=== PATIENT | male | born 1960 | race Two or more races ===

== ENCOUNTER 2024-10-20 12:00 | Outpatient (AMB) | payer OTHER, SELFPAY ==
--- NOTE | 2024-10-20 12:12 | A.OFFPC_ITS ---
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 Required: No Accompanied by: Self / Same As Patient Allergies No Known Allergies Allergy (Verified 10/20/24 12:56) Medication List - Last Reconciled 10/20/24 by [facility] No Known Home Meds Tobacco use date assessed: 10/20/24 Fall risk assessment: No Falls in past year Last assessed Fall Risk: 10/20/24 Dental Screening Dental Screen Date: 10/20/24 Did you have a dental visit in the last 12 months?: Yes Did you have a dental problem in the last 6 months where you did not have access to dental care?: No Was dental information given to patient?: Patient has dentist HPI ESTABLISH CARE HPI Details Chief Complaint The patient is visiting for general wellness and management of chronic conditions, with an emphasis on historical prostatitis, erectile dysfunction, and previous high blood pressure. History of Present Illness The patient is a 64-year-old male presenting for wellness and managing chronic conditions. He reports a previous history of high blood pressure; however, his blood pressure is currently stable. Approximately reported through a past episode, he experienced prostatitis with an elevated PSA level that has since returned to normal. He is currently not experiencing any urinary symptoms and declines a digital rectal examination (ELIO) for further prostate evaluation. There is recorded historical observation of elevated PSA testing, with prior attention from a urologist. In addition, the patient reports some erectile dysfunction. No other associated symptoms or aggravating factors related to this issue were noted during the visit. Social History - Smoking: The patient smokes cigars pierre roximately once a week and does not smoke cigarettes or marijuana. - Alcohol Use: He drinks alcohol occasio lidia but limits the intake. - Previous Urological Care: Followed by a urologist in [place] for past prostate concerns. Health Maintenance - Lab work, including PSA, was ordered f or current evaluation. - Referral for a colonoscopy due to unce rtainty about previous screenings. Review of Systems - Genitourinary: Denies any current urin manny symptoms. - Cardiovascular: Denies peripheral candida a. Physical Exam General: Cooperative, healthy appearing, comfortable, no acute distress and well developed Orientation: Patient oriented x3 Limitations: No limitations Head: Normal to inspection Ears: Hearing grossly normal bilaterally Nose: Normal external nose present Face and sinus: Normal facial exam Eyes: Appearance normal, both eyes and all related structures Neck: Normal visual inspection and Yes full ROM Respiratory: Normal respiratory effort and able to speak in complete sentences. Clear to auscultation bilaterally Cardiovascular: Regular rate and rhythm. Normal S1 and S2 GI: Normal to inspection. Soft to palpation and nontender Skin: No rashes or lesions noted Neuro: Patient oriented x3 Extremities: Normal to inspection, no edema noted Results Plan Viagra Sildenafil) was prescribed at a low dose to address reported erectile dysfunction. There is an intent to trace and gather past records from his pr evious urologist in [place] regarding prostatitis and PSA levels for continuity of care. PSA test has been ordered to monitor current prostate health status. In the absence of a formal record, a referral has been issued for a colonoscopy. General lifestyle modifications were discussed, including limitations on smoking and alcohol intake. Advising on potential medication effects related to Sildenafil for ED was undertaken. Discussion Notes Today, the patient and I discussed the management of his erectile dysfunction, for which I prescribed low-dose Viagra (Sildenafil), considering both the bene fits and potential side effects. We also reviewed his history of prostatitis and elevated PSA, with plans to retrieve previous medical records from [place]. We discussed the importance of the PSA test and pending results for continued monitoring. A referral for a colonoscopy was considered necessary due to uncertainty in previous screening history. Patient Instructions - Take the prescribed Viagra (Sildenafil ) as directed for erectile dysfunction. - Await the upcoming PSA test and monito r any changes in symptoms. - Cease smoking cigars if possible, and reduce alcohol intake. - Contact the office if experiencing any side effects from the medication. - Follow up with the scheduled colonosco py appointment. FOR[facility]LY [facility] Surgical History S/P appendectomy Social History Housing: House Alcohol intake: never Patient Tobacco Use Status: Current everyday Tobacco user (cigar once a month ) Tobacco use type: Cigar e-Cigarette/Vaping Use: Never Used Use of substances other than those prescribed or required for medical reasons: No service: No Current occupational status: employed Current occupation: [employer] Current occupational exposures/hazards: No Cognitive needs: No Hearing needs: No Vision needs: No Questionnaire PHQ-9 Over the last 2 weeks, how often have you been bothered by any of the following problems? 1. Little interest or pleasure in doing things: not at all 2. Feeling down, depressed, or hopeless: not at all 3. Trouble falling or staying asleep, or sleeping too much: not at all 4. Feeling tired or having little energy: not at all 5. Poor appetite or overeating: not at all 6. Feeling bad about yourself - or that you are a failure or have let yourself o r your family down: not at all 7. Trouble concentrating on things, such as reading the newspaper or watching television: not at all 8. Moving or speaking so slowly that other people could have noticed. Or the opposite - being so fidgety or restless that you have been moving around a lot more than usual: not at all 9. Thoughts that you would be better off or of hurting yourself in some way: not at all Total score: 0 Depression Screening Interpretation: Negative Depression Screening Done: Yes 25952 - PHQ-9 Billing: Yes Source: Developed by Drs. Eamon Godinez, Sapphire Moy, Lucian gong nd colleagues, with an educational john from [employer]. Thrive Questionnaire Date Thrive assessed: 10/13/24 I am a: Patient What is your living situation today?: I have a steady place to live Within the past 12 months, did the food you bought not last and you didn't have the money to get more?: I choose not to answer this question Within the past 12 months, did you worry whether your food would run out before you got money to buy more?: I choose not to answer this question Do you have trouble paying for medicines?: No Do you have trouble getting transportation to medical appointments?: No Do you have trouble paying your heating and electricity bill?: Yes Do you have trouble taking care of your child, family member or friend?: No Do you have trouble with day-to-day activities such as bathing, preparing meals, shopping, managing finances, etc.?: No Are you currently unemployed and looking for a job?: No Are you interested in more education?: Yes Please select the resources that you would like help with: Food Currently or been in a relationship where the following occur: I choose not to answer THRIVE Score: 1 AUDIT C Alcohol Use Questionnaire (AUDIT-C) 1. How often do you have a drink containing alcohol?: Monthly or less 2. How many drinks containing alcohol do you have on a typical day when you are drinking?: 1 or 2 3. How often do you have six or more drinks on one occasion?: Never Total Score: 1 Score Reviewed/Action Taken: Yes ALMA ROSA-7 AMB Questionnaire ALMA ROSA-7 Date ALMA ROSA - 7 assessed: 10/20/24 Feeling nervous, anxious, or on edge: 0 = Not at all Not being able to stop or control worryin = Not at all Worrying too much about different things: 0 = Not at all Trouble relaxin = Not at all Being so restless that it is hard to sit still: 0 = Not at all Becoming easily annoyed or irritable: 0 = Not at all Feeling afraid as if something awful might happen: 0 = Not at all Total ALMA ROSA-7 score (0-4 normal; 5-9 mild; 10-14 moderate; 15-21 severe): 0 Source: Developed by Drs. Eamon Godinez, Sapphire Moy, Lucian Mccloud and colleagues, with an educational john from [employer]. ALMA ROSA-7 Assessment Billing ALMA ROSA-7 Assessment Tool: ALMA ROSA-7 Assessment 74880 Physical exam (Primary Care) Vital Signs: Last Vital Signs Pulse 77 10/20/24 12:14 BP 126/80 10/20/24 12:14 Pulse Ox 98 10/20/24 12:14 Oxygen Delivery Method Room Air 10/20/24 12:14 BMI result Body Mass Index 25.7 Tobacco/Smoking Status: Tobacco use Status Tobacco use date assessed 10/20/24 10/20/24 12:13 Patient Tobacco Use Status Current everyday Tobacco ( 10/20/24 12:30 cigar once a month ) Tobacco use type Cigar 10/20/24 12:30 e-Cigarette/Vaping Use Never Used 10/20/24 12:30 PHQ-9: PHQ-9 Score PHQ-9: Total score 0 10/20/24 12:30 Depression Screening Interpretation: Negative Thrive Assessment: Date of Thrive Assessment Date Thrive assessed 10/13/24 10/20/24 12:13 Currently or been in a relationship where the following occur: I choose not to answer Coding Level of Care Code New Pt Level 3 (35365) Diagnoses Screening for colon cancer Z12.11 Blood pressure elevated without history of HTN R03.0 Screening for prostate cancer Z12.5 Prostatitis N41.9 Additional Codes ALMA ROSA-7 Assessment Billing - ALMA ROSA-7 Assessment Tool: ALMA ROSA-7 Assessment 33914 ([id number]) PHQ-9 - 12844 - PHQ-9 Billing: Yes ([id number]) Assessment & Plan Assessment & Plan (1) Screening for colon cancer: Code(s): Z12.11 - Encounter for screening for malignant neoplasm of colon Category: Medical (2) Blood pressure elevated without history of HTN: Code(s): R03.0 - Elevated blood-pressure reading, without diagnosis of hypertension Category: Medical Plan: . (3) Screening for prostate cancer: Code(s): Z12.5 - Encounter for screening for malignant neoplasm of prostate Category: Medical (4) Prostatitis: Code(s): N41.9 - Inflammatory disease of prostate, unspecified Category: Medical Plan . Orders: Orders Complete Blood Count Auto Diff Today R03.0 - Elevated blood-pressure reading, without diagnosis of hypertension Comprehensive [place]. Panel Fast Today R03.0 - Elevated blood-pressure reading, without diagnosis of hypertension TSH reflex Free T4 Today R03.0 - Elevated blood-pressure reading, without diagnosis of hypertension UA CC w/rflx Micro + Cult Today R03.0 - Elevated blood-pressure reading, without diagnosis of hypertension Lipid Panel Today R03.0 - Elevated blood-pressure reading, without diagnosis of hypertension Prostate Specific Antigen Scr Today Z12.5 - Encounter for screening for mal ignant neoplasm of prostate Referrals Gastroenterology Referral Z12.11 - Encounter for screening for malignant neoplasm of colon Medications: New sildenafil administer 30 minutes to 4 hours before activity 25 mg PO DAILY PRN 10 tabs 0RF sexual activity
[2024-10-20 12:14] VITALS: BP 126/80; PULSE 77; O2SAT 98; BMI 25.7
--- OUTSIDE RECORDS SUMMARY | 2024-10-20 15:27 | XMS_ITS | Clinical Summary ---
Author Organization [facility] ity Address [address] [place] [address] Care Team Providers Care Aquaculture And Fisheries Professor Name Role Phone Unavailable Primary Care Provider Unavailabl e Surgical History Surgery Date Site/Laterality Comments OTHER SURGICAL HISTORY 03/03/2024 PROCEDURE: HISTORY OTHER; COMMENT: SBO, Laparoscopic adhesiolysis APPENDECTOMY PROCEDURE: [place] APPENDECTOMY Social History Tobacco Use Types Packs/Day Years Used Date Smoking Tobacco: Never Alcohol Use Standard Drinks/Week Comments Yes 0 (1 standard drink = 0.6 oz pur e alcohol) Sex and Gender Information Value Date Recorded Sex Assigned at Not on file Legal Sex Male 11:37 AM EDT Gender Identity Not on file Sexual Orientation Not on file Obstetrics History Last Filed Vital Signs Vital Sign Reading Time Taken Comments Blood Pressure 181/95 03/18/2024 10:12 AM EDT Pulse 83 03/18/2024 10:12 AM EDT Temperature - - Respiratory Rate - - Oxygen Saturation - - Inhaled Oxygen Concentration - - Weight 73.5 kg (162 lb) 03/18/2024 10:12 AM EDT Height 171.5 cm (5' 7.5 ) 03/18/2024 10:12 AM ED T Body Mass Index 25 03/18/2024 10:12 AM EDT Plan of Treatment Health Maintenance Due Date Last Done Comments DTaP,Tdap,and Td Vaccines (1 - Tdap) 1977 Pneumococcal Vaccine: 50+ Ye ars (1 of 1 - PCV) 01/09/2008 Zoster Vaccines (1 of 2) 01/09/2008 COVID-19 Vaccine ( - 2023-2 5 season) 2024 Influenza Vaccine (#1) 2024 Cholesterol Screening (Lipid Panel) 05/03/2024 Colorectal Cancer Screening: Colonoscopy 05/03/2024 Depression Screening 05/03/2024 Falls Risk Assessment 05/03/2024 Hepatitis C Screening 05/03/2024 Social Influencers of Health Screening 05/03/2024 RSV Immunization Patients 60 + Years Old (1 - 1-dose 75+ series) 2033 HIB Vaccines Aged Out No longer eligi ble based on patient's age to complete this topic HPV Vaccines Aged Out No longer eligi ble based on patient's age to complete this topic Hepatitis A Vaccines Aged Out No long er eligible based on patient's age to complete this topic Hepatitis B Vaccines Aged Out No long er eligible based on patient's age to complete this topic IPV Vaccines Aged Out No longer eligi ble based on patient's age to complete this topic MMR Vaccines Aged Out No longer eligi ble based on patient's age to complete this topic Meningococcal ACWY Vaccine Aged Out N o longer eligible based on patient's age to complete this topic Meningococcal B Vacine Aged Out No lo nger eligible based on patient's age to complete this topic RSV Immunization Patients Un soni 20 months Aged Out No longer eligible b ased on patient's age to complete this topic Varicella Vaccines Aged Out No longer eligible based on patient's age to complete this topic
== END 2024-10-20 14:10 | disposition home or self-care (01) ==
LOC: HO.HMCC 12:01
PROVIDERS: PCP Nurse Practitioner Family; Visit Provider Nurse Practitioner Family
DX: Z12.11 Encounter for screening for malignant neoplasm of colon (principal); R03.0 Elevated blood-pressure reading, without diagnosis of hypertension; Z12.5 Encounter for screening for malignant neoplasm of prostate; N41.9 Inflammatory disease of prostate, unspecified

== ENCOUNTER → 2024-10-20 12:00 | Outpatient (BNVA) | payer OTHER, SELFPAY | PROVIDERS: PCP Nurse Practitioner Family; Visit Provider Nurse Practitioner Family | DX: R03.0 Elevated blood-pressure reading, without diagnosis of hypertension (principal); N41.9 Inflammatory disease of prostate, unspecified; N52.9 Male erectile dysfunction, unspecified | CPT/HCPCS: 96127 ==

== ENCOUNTER 2024-11-03 09:31 | Outpatient (REF) | payer OTHER, SELFPAY ==
--- OUTSIDE RECORDS SUMMARY | 2024-11-03 10:35 | XMS_ITS | Clinical Summary ---
Author Organization [facility] ity Address [address] [place] [address] Care Team Providers Care Auto Technician Name Role Phone Unavailable Primary Care Provider Unavailabl e Surgical History Surgery Date Site/Laterality Comments OTHER SURGICAL HISTORY 03/03/2024 PROCEDURE: HISTORY OTHER; COMMENT: SBO, Laparoscopic adhesiolysis APPENDECTOMY PROCEDURE: IN APPENDECTOMY Social History Tobacco Use Types Packs/Day [...] Influencers of Health Screening 05/03/2024 RSV Immunization Adult Patie nts (1 - 1-dose 75+ series) 2033 HIB [...] age to complete this topic Meningococcal B Vaccine Aged Out No l onger eligible based on patient's age to complete this topic RSV Immunization Patients Un soni 20 months Aged Out No longer eligible b ased on patient's age to complete this topic Varicella Vaccines Aged Out No longer eligible based on patient's age to complete this topic
[2024-11-03 13:34] LABS: MANUAL DIFF FLAG NO
[2024-11-03 13:46] LABS: Basophils Percent Auto 0.3 % (0-2); Eosinophils Absolute Auto 0.1 X10*3/uL (0.0-0.4); Eosinophils Percent Auto 1.4 % (0-4); Hematocrit 37.9 % (42.0-52.0); Hemoglobin 13.2 g/dl (14.0-18.0); Imm Gran Abs Auto 0.01 X10*3/uL (0.00-0.03); Imm Gran Pct Auto 0.2 % (0.0-0.4); Lymphocytes Absolute Auto 2.6 X10*3/uL (1.2-4.9); Lymphocytes Percent Auto 41.7 % (20-40); Mean Corpuscular HGB Conc 34.8 g/dl (31.0-36.0); Mean Corpuscular Hemoglobin 30.2 pg (27.0-33.0); Mean Corpuscular Volume 86.7 fL (80.0-98.0); Mean Platelet Volume 11.2 fL (9.4-12.4); Monocytes Absolute Auto 0.7 X10*3/uL (0.1-1.2); Monocytes Percent Auto 11.1 % (2-11); Neutrophils Absolute Auto 2.8 x10*3/uL (2.0-8.3); Neutrophils Percent Auto 45.3 % (45-73); Platelet Count 206 X10*3/uL (160-400); Red Blood Count 4.37 X10*6/uL (4.60-5.80); White Blood Count 6.2 X10*3/uL (4.8-10.8)
[2024-11-03 13:52] LABS: Appearance Urine Clear; Color Urine Yellow; Glucose Urine UA Negative (Negative); Leukocyte Esterase Urine Negative (Negative); Nitrite Urine Negative (Negative); PH 5.5 (5.0-9.0); UMIC TRIGGER UACC YES; Urine Blood Moderate (2+) (Negative); Urine Ketones Negative (Negative); Urine Protein Negative (Neg-Trace)
[2024-11-03 14:06] LABS: Bacteria Urine None Seen (None Seen); Hyaline Casts Urine 0-2 /LPF (0-2); Squamous Epithelial Cell Urine 0-2 /HPF (0-2); WBC Urine 0-5 /HPF (0-5)
[2024-11-03 14:10] LABS: Alanine Aminotransferase 44 U/L (0-40); Albumin Level 4.3 g/dL (3.5-5.0); Alkaline Phosphatase 80 U/L (39-117); Anion Gap 12 (12-20); Aspartate Amino Transferase 35 U/L (5-37); Bilirubin Total 0.6 mg/dL (0.0-1.0); Blood Urea Nitrogen 21 mg/dL (9-16); Calcium 9.3 mg/dL (8.4-10.2); Carbon Dioxide 27 mmol/L (22-29); Chloride 106 mmol/L (96-108); Cholesterol 165 mg/dL (<200); Estimated Glomerular Filt Rate > 60; Glucose Fasting 152 mg/dL (60-99); HDL Cholesterol 36 mg/dL (>40); LDL Cholesterol Calculated 105 mg/dL (<100); Sodium 141 mmol/L (135-145); Total Protein 7.2 g/dL (6.5-8.0); Triglycerides 122 mg/dL (<150)
[2024-11-03 14:15] LABS: TSH reflex Free T4 1.93 uIU/mL (0.32-4.0)
[2024-11-03 14:16] LABS: Prostate Specific Antigen Scr 4.51 ng/mL (<0.05-4.0)
== END 2024-11-03 09:32 | disposition home or self-care (01) ==
LOC: HO.HMGCLDS 09:31
PROVIDERS: PCP Nurse Practitioner Family; Visit Provider Nurse Practitioner Family
DX: R03.0 Elevated blood-pressure reading, without diagnosis of hypertension (principal); Z12.5 Encounter for screening for malignant neoplasm of prostate; Z13.6 Encounter for screening for cardiovascular disorders
CPT/HCPCS: 36415; 80053; 80061; 81001; 84153; 84443; 85025

== ENCOUNTER 2024-12-01 10:00 | Outpatient (AMB) | payer OTHER, SELFPAY ==
--- NOTE | 2024-12-01 10:48 | AM.OFFWIN_ITS ---
Intake Vital Signs 3 12/01/24 10:52 Height 5 ft 7 in Weight 161 lb BMI 25.2 BP 140/80 H Blood Pressure Location Rt brachial Position Sitting Pulse 65 Pulse Source Pulse Oximeter Pulse Oximetry (%) 97 Oxygen Delivery Method Room Air Intake Visit Reasons: EP check his blood sugar Intake Note: Patient here for blood sugar check as he has been checking them at home and they have been WNL. Patient Tobacco Use Status: Current everyday Tobacco user (cigar once a month ) Allergies No Known Allergies Allergy (Verified 12/01/24 10:54) Do you need a note to return to daycare/school/sports/work: No HPI HPI Comments 2 History of Present Illness0 Details 64 y/o Male patient who presents to the walk in clinic with c/o Low Blood Sugar numbers at home. He was diagnosed with T2DM and prescribed Metformin 500mg Daily. Pt has been monitoring his Sugars at home twice daily (Am and PM). The review of his BG log shows slightly elevated numbers around high 100's. Patient not sure if he needs to take his Metformin and believes his sugars are low. Denies Hypoglycemia symptoms. Pt does endorse poor eating habits - eats White rice, Bread and Pizza all the times, and does enjoy a glass of wine daily. Most of the PM BG readings were non Fasting. The morning BG readings were before breakfast. Pt also c/o Rash on his Face - he was given Ketoconazole cream from his doctor who is outside the [facility]. Reports that the cream did not work for him. [facility] Medical History (Updated 12/01/24 @ 11:51 by Marianna Saldana NP) Rash and nonspecific skin eruption Surgical History S/P appendectomy Social History Housing: House Alcohol intake: never Patient Tobacco Use Status: Current everyday Tobacco user (cigar once a month ) Tobacco use type: Cigar e-Cigarette/Vaping Use: Never Used service: No Current occupational status: employed Current occupation: [employer] Current occupational exposures/hazards: No Cognitive needs: No Hearing needs: No Vision needs: No Review of Systems Const All systems reviewed & are unremarkable except as noted in HPI and below Physical Exam Vital Signs: Last Vital Signs Pulse 65 05/08/25 10:52 BP 140/80 H 12/01/24 10:52 Pulse Ox 97 12/01/24 10:52 Oxygen Delivery Method Room Air 12/01/24 10:52 BMI result Body Mass Index 25.2 Const General: no acute distress Orientation/consciousness: patient oriented x3 HEENT Head: Yes normocephalic Head images: 2 1. Macular papular erythematous rash covering face and fore-head. Neuro General: patient oriented x3, gait normal and moves all extremities Psych Speech and movement: Normal speech and movement present Results AMB Random Glucose (hemocue) 2 AMB Random Glucose (hemocue) 130 mg/dL Last Edit by JERRY Rowley on 12/01/24 11:45 Results Reviewed Results Reviewed: Laboratory Last Values Random Glu (Clinic) 130 mg/dL 12/01/24 11:44 Assessment & Plan Assessment & Plan (1) Diabetes: Code(s): E11.9 - Type 2 diabetes mellitus without complications Qualifiers: Diabetes mellitus complication status: without complication Diabetes mellitus long term care social worker insulin use: without residential use Diabetes mellitus type: t ype 2 Qualified Code(s): E11.9 - Type 2 diabetes mellitus without complications Plan: Discussed lifestyle changes; better food choices and following Diabetic diet. Advised to take Metformin as prescribed and continue checking BG levels BID. F/U with PCP in 3 months as scheduled. (2) Rash and nonspecific skin eruption: Code(s): R21 - Rash and other nonspecific skin eruption Plan: Ordered Hydrocortisone cream for 2 weeks. Advised to use sparingly. Orders: Orders 2 AMB Random Glucose (hemocue) Today Z13.9 - Encounter for screening, unspecified Medications: New 2 hydrocortisone 1% 1 appl topical BID 14 days PRN 28.4 grams 0RF skin irritation R21 - Rash and other nonspecific skin eruption Coding Level of Care Code Est Pt Level 4 (58873) Diagnoses Type 2 diabetes mellitus without complication, without long-term current use of insulin E11.9 Diabetes mellitus complication status: without complication Diabetes mellitus long term care social worker insulin use: without long term care social worker use Diabetes mellitus type: type 2 Rash and nonspecific skin eruption R21 Time Spent (min) 20
[2024-12-01 10:52] VITALS: BP 140/80; PULSE 65; O2SAT 97; BMI 25.2
--- OUTSIDE RECORDS SUMMARY | 2024-12-01 11:01 | XMS_ITS | Clinical Summary ---
Author Organization [facility] ity Address [address] [place] [address] Care Team Providers Care Credit Collector Name Role Phone Unavailable Primary Care Provider Unavailabl e Surgical History Surgery Date Site/Laterality Comments OTHER SURGICAL HISTORY 03/03/2024 PROCEDURE: HISTORY OTHER; COMMENT: SBO, Laparoscopic adhesiolysis APPENDECTOMY PROCEDURE: [place] APPENDECTOMY Social History Tobacco Use Types Packs/Day [...] Vaccine ( - 2023-2 5 season) 2024 Cholesterol Screening (Lipid Panel) 05/03/2024 Colorectal Cancer Screening: Colonoscopy 05/03/2024 Depression Screening 05/03/2024 Falls Risk Assessment 05/03/2024 Hepatitis C Screening 05/03/2024 Social Influencers of Health Screening 05/03/2024 Influenza Vaccine (Season Ended) 2025 RSV Immunization Adult Patie nts (1 - [...]
== END 2024-12-01 11:44 | disposition home or self-care (01) ==
PROVIDERS: PCP Nurse Practitioner Family; Visit Provider Nurse Practitioner Family
DX: E11.9 Type 2 diabetes mellitus without complications (principal); R21 Rash and other nonspecific skin eruption; Z13.9 Encounter for screening, unspecified

== ENCOUNTER → 2024-12-01 10:00 | Outpatient (BNVA) | payer OTHER, SELFPAY | PROVIDERS: PCP Nurse Practitioner Family; Visit Provider Nurse Practitioner Family | DX: E11.9 Type 2 diabetes mellitus without complications (principal); R21 Rash and other nonspecific skin eruption | CPT/HCPCS: 82948 ==

== ENCOUNTER 2025-01-10 13:52 | Outpatient (AMB) | payer OTHER, SELFPAY ==
--- NOTE | 2025-01-10 14:11 | MHC.OFFVIS ---
Intake Visit Reasons: elevated PSA Intake Note: New patient presents today for initial visit for elevated PSA Urology Medication:Sildenafil Blood Thinner:None Antibiotic Allergies:None Allergies No Known Allergies Allergy (Verified 01/10/25 15:09) Medication List - Last Reconciled 01/10/25 by CHAO Chong atorvastatin 10 mg PO BEDTIME blood sugar diagnostic (FreeStyle Lite Strips) Test blood sugar once a day blood-glucose meter (FreeStyle Lite Meter kit) Test blood sugar once a day hydrocortisone 1% 1 appl topical BID PRN 14 days lancets (FreeStyle Lancets) Test blood sugar once a day metformin ER 500 mg PO DAILY sildenafil 25 mg PO DAILY PRN HPI Comments Details: Dany has a very pleasant 65-year-old male patient of Dr. Street. He has a past medical history of diabetes, hyperlipidemia, and retention. In discussion with the patient today he reports having followed up with his PCP at which time he had an elevated PSA and recommendations were made for urology referral for further assessment evaluation. He does report a previous history of urinary retention 2-3 years ago and having had a Prado catheter for 8 months. He reports following up with Urology and undergoing prostate procedure and has since been able to void with no issues. He does discuss this longstanding history of an elevated PSA however is unsure as to previous workup and or lab values. In office urinalysis results reviewed with the patient today. He is unsure as to if he has any family history of prostate cancer. ELIO was offered however deferred. We did discussed potential causes of elevated PSA as well as further treatment options and risks and benefits of these treatment options. In review of patient's chart it appears PSA 11/18 4.5. He denies denies urinary urgency, urinary frequency, incontinence, nocturia, hematuria, dysuria, foul smelling urine, changes to urinary stream, flank pain, fever, and or chills. He is happy with his current voiding parameters. [facility] Medical History Rash and nonspecific skin eruption Surgical History S/P appendectomy Social History Housing: House Alcohol intake: never Patient Tobacco Use Status: Current everyday Tobacco user (cigar once a month ) Tobacco use type: Cigar e-Cigarette/Vaping Use: Never Used service: No Current occupational status: employed Current occupation: [employer] Current occupational exposures/hazards: No Cognitive needs: No Hearing needs: No Vision needs: No Review of Systems Const All systems reviewed & are unremarkable except as noted in HPI and below Physical Exam Const General: cooperative, healthy appearing, comfortable, no acute distress, well developed, alert and awake Nutritional Appearance: average body habitus Orientation/consciousness: patient oriented x3 Limitations: no limitations HEENT Head: Yes normal to inspection, Yes normocephalic and Yes atraumatic Ears: hearing grossly normal bilaterally Eyes General: appearance normal, both eyes and all related structures Neck Neck: Yes normal visual inspection and Yes trachea midline Chest Chest palpation & inspection: normal inspection of the chest Resp Effort & Inspection: normal respiratory effort and able to speak in complete sentences Cardio Rate: regular rate GI Inspection: Yes normal to inspection General: Yes no CVA tenderness Back/Spine/Pelvis Back: no CVA tenderness Skin General skin exam: no rashes or lesions noted Neuro General: patient oriented x3 Extrem General: Yes normal to inspection Psych Appearance: grossly normal and well kempt Mental Status: mental status grossly normal Speech and movement: Normal speech and movement present and Clear speech present Affect: normal affect Attitude: cooperative Thought process: Normal thought process present Thought content: Normal thought content present Insight: Fair insight present (Psych) Judgement: Fair judgement present (Psych) Results AMB Urinalysis, Automated UA Leukoctes 0 Quiana/uL Last Edit by Jo Landis on 01/10/25 14:34 UA Nitrite Negative Last Edit by Jo Landis on 01/10/25 14:34 UA Urobilinogen 3.5 mg/dL Last Edit by Jo Landis on 01/10/25 14:34 UA Protein 1 mg/dL Last Edit by Jo Landis on 01/10/25 14:34 UA pH 5.5 Last Edit by Jo Landis on 01/10/25 14:34 UA Blood 0 Geoff/uL Last Edit by Jo Landis on 01/10/25 14:34 UA Specific Heyworth 1.020 Last Edit by Jo Landis on 01/10/25 14:34 UA Ketone Negative Last Edit by Jo Landis on 01/10/25 14:34 UA Bilirubin 0 mg/dL Last Edit by Jo Landis on 01/10/25 14:34 UA Glucose 0 mg/dL Last Edit by Jo Landis on 01/10/25 14:34 Results Reviewed Results Reviewed: Laboratory Last Values Urine pH (Auto) 5.5 01/10/25 08:24 Specific [place]worth (Auto) 1.020 01/10/25 08:24 Urine Protein (Auto) 1 mg/dL 01/10/25 08:24 Glucose (UA)(Auto) 0 mg/dL 01/10/25 08:24 Urine Ketones (Auto) Negative 01/10/25 08:24 Urine Blood (Auto) 0 Geoff/uL 01/10/25 08:24 Urine Nitrite (Auto) Negative 01/10/25 08:24 Urine Bilirubin (Auto) 0 mg/dL 01/10/25 08:24 Urine Urobilinogen (Auto) 3.5 mg/dL 01/10/25 08:24 Leukocyte Esterase (Auto) 0 Quiana/uL 01/10/25 08:24 Assessment & Plan Assessment & Plan (1) Elevated prostate specific antigen (PSA): Code(s): R97.20 - Elevated prostate specific antigen [PSA] Category: Medical Plan In office urinalysis results reviewed with the patient today; as noted above. We discussed at length potential causes of elevated PSA as well as further treatment options and risks and benefits of these treatment options. ELIO offered however deferred. He currently denies any bothersome urinary issues or concerns. He reports be happy with current voiding parameters. Will obtain retroperitoneal ultrasound for further assessment evaluation. Will obtain PSA for further assessment evaluation; we discussed the importance of no heavy lifting 1-2 days prior, no caffeine morning of, and sexual /ejaculation 24 hours prior to lab draw. Follow-up in 1-3 months with labs and imaging to be completed prior; or sooner with any issues, concerns, and or questions. Orders: Orders AMB Urinalysis Automated Today Z13.9 - Encounter for screening, unspecified US retroperitoneal comp Today N41.9 - Inflammatory disease of prostate, unspecified PSA,Total (Free>4and<10) Today R97.20 - Elevated prostate specific antigen [PSA] Patient Instructions: The patient had an opportunity to ask questions regarding the treatment plan. All questions were answered. Physical exam, labs, and imaging were discussed and reviewed in detail. As well as risks, benefits, and discussion of treatment choices. No major barriers to understanding were identified. The patient expressed understanding and agreement with the above treatment plan. The patient was made aware they should contact our office by phone for worsening of their current condition, the appearance of new symptoms, or with any questions or concerns. Compliance is encouraged with any medications and follow up testing that is ordered. It is a privilege to be allowed the opportunity to participate in? your urological care.? Again, if you have any questions or concerns If you have any questions or concerns please do not hesitate to contact me. The office is [phone]. This note is constructed using voice recognition software. While every effort has been made to ensure accuracy ski patrol officer errors may have been included. Yours sincerely, CHAO Chong Coding Level of Care Code New Pt Level 3 (43143) Diagnoses Elevated prostate specific antigen (PSA) R97.20
--- OUTSIDE RECORDS SUMMARY | 2025-01-10 15:54 | XMS_ITS | Clinical Summary ---
Author Organization [facility] ity Address [address] [place] [address] Care Team Providers Care Nuclear Fuel Processing Technician Name Role Phone Unavailable Primary Care Provider Unavailabl e Surgical History Surgery Date Site/Laterality Comments OTHER SURGICAL HISTORY 03/03/2024 PROCEDURE: HISTORY OTHER; COMMENT: SBO, Laparoscopic adhesiolysis APPENDECTOMY PROCEDURE: ID APPENDECTOMY Social History Tobacco Use Types Packs/Day [...]
== END 2025-01-10 14:48 | disposition home or self-care (01) ==
LOC: HO.HUSH 13:53
PROVIDERS: PCP Nurse Practitioner Family; Visit Provider Nurse Practitioner Family
DX: Z13.9 Encounter for screening, unspecified (principal); R97.20 Elevated prostate specific antigen [PSA]
CPT/HCPCS: 99203

== ENCOUNTER → 2025-01-10 13:52 | Outpatient (BNVA) | payer OTHER, SELFPAY | PROVIDERS: PCP Nurse Practitioner Family; Visit Provider Nurse Practitioner Family | DX: R97.20 Elevated prostate specific antigen [PSA] (principal) | CPT/HCPCS: 81003 ==

== ENCOUNTER 2025-02-23 15:27 | Outpatient (AMB) | payer OTHER, SELFPAY ==
--- NOTE | 2025-02-23 15:31 | A.OFFPC_ITS ---
Vital Signs 02/23/25 15:35 Height 5 ft 7 in Weight 156 lb BMI 24.4 BP 130/98 H Blood Pressure Location Lt brachial Position Sitting Respiration 16 Pulse 76 Pulse Source Pulse Oximeter Temp 98.1 F Temp Source Oral Pulse Oximetry (%) 98 Oxygen Delivery Method Room Air Intake Visit Reasons: Followup diabetes Supervisor Stripping Required: No Accompanied by: Self / Same As Patient Allergies No Known Allergies Allergy (Verified 02/23/25 15:48) Medication List - Last Reconciled 02/23/25 by CHAO Parish atorvastatin 10 mg PO BEDTIME blood sugar diagnostic (FreeStyle Lite Strips) Test blood sugar once a day blood-glucose meter (FreeStyle Lite Meter kit) Test blood sugar once a day hydrocortisone 1% 1 appl topical BID PRN 14 days lancets (FreeStyle Lancets) Test blood sugar once a day losartan 25 mg PO DAILY 30 days metformin ER 500 mg PO DAILY sildenafil 25 mg PO DAILY PRN Tobacco use date assessed: 02/23/25 Fall risk assessment: No Falls in past year Last assessed Fall Risk: 02/23/25 Dental Screening Dental Screen Date: 02/23/25 Did you have a dental visit in the last 12 months?: Yes Did you have a dental problem in the last 6 months where you did not have access to dental care?: No Was dental information given to patient?: Patient has dentist HPI Followup diabetes HPI Details Chief Complaint The patient presents for a follow-up regarding diabetes management. History of Present Illness The patient is a 65-year-old male presenting with a follow-up for diabetes management. His HbA1c is currently 6.1, indicating good control, and he has been actively managing his diet to achieve this result. The patient denies any symptoms of neuropathy, chest pain, or dyspnea. He has been advised to monitor his blood pressure at home and report the values. He is instructed to use a manual blood pressure cuff rather than a wrist cuff for accuracy. Will also start low dose arb. Social History Health Maintenance - Encouraged dietary management for diab etes control - Advised home blood pressure monitoring with a manual cuff Review of Systems - Neurological: Denies neuropathy - Cardiovascular: Denies chest pain - Respiratory: Denies dyspnea Physical Exam General: Cooperative, healthy appearing, comfortable, no acute distress and well developed Orientation: Patient oriented x3 Limitations: No limitations Head: Normal to inspection Ears: Hearing grossly normal bilaterally Nose: Normal external nose present Face and sinus: Normal facial exam Eyes: Appearance normal, both eyes and all related structures Neck: Normal visual inspection and Yes full ROM Respiratory: Normal respiratory effort and able to speak in complete sentences. Clear to auscultation bilaterally Cardiovascular: Regular rate and rhythm. Normal S1 and S2 GI: Normal to inspection. Soft to palpation and nontender Skin: No rashes or lesions noted Neuro: Patient oriented x3 Extremities: Positive sensation. Feet were intact by lab. Positive dorsalis pedis by lab. Results - Labs: HbA1c 6.1 Plan The patient will continue to manage his diabetes through dietary modifications, which have proven effective as evidenced by his HbA1c of 6.1. He is advised to monitor his blood pressure at home using a manual cuff and report the values for further assessment. Discussion Notes I discussed with the patient the importance of maintaining his current dietary regimen to manage his diabetes effectively. We also talked about the need for accurate blood pressure monitoring at home and the use of a manual cuff for better precision. Patient Instructions - Continue with your current diet to zhou p your diabetes under control. - Use a manual blood pressure cuff to ch heath your blood pressure at home and report the readings. [facility] Medical History Rash and nonspecific skin eruption Surgical History S/P appendectomy Social History Housing: House Alcohol intake: never Patient Tobacco Use Status: Current everyday Tobacco user (cigar once a month ) Tobacco use type: Cigar e-Cigarette/Vaping Use: Never Used service: No Current occupational status: employed Current occupation: [employer] Current occupational exposures/hazards: No Cognitive needs: No Hearing needs: No Vision needs: No Questionnaire PHQ-9 Over the last 2 weeks, how often have you been bothered by any of the following problems? 1. Little interest or pleasure in doing things: not at all 2. Feeling down, depressed, or hopeless: not at all 3. Trouble falling or staying asleep, or sleeping too much: not at all 4. Feeling tired or having little energy: not at all 5. Poor appetite or overeating: not at all 6. Feeling bad about yourself - or that you are a failure or have let yourself or your family down: not at all 7. Trouble concentrating on things, such as reading the newspaper or watching television: not at all 8. Moving or speaking so slowly that other people could have noticed. Or the opposite - being so fidgety or restless that you have been moving around a lot more than usual: not at all 9. Thoughts that you would be better off or of hurting yourself in some way: not at all Total score: 0 Depression Screening Interpretation: Negative Depression Screening Done: Yes 32833 - PHQ-9 Billing: Yes Source: Developed by Drs. Eamon Godinez, Sapphire Moy, Lucian Mccloud and colleagues, with an educational john from [employer]. Thrive Questionnaire Date Thrive assessed: 10/13/24 I am a: Patient What is your living situation today?: I have a steady place to live Within the past 12 months, did the food you bought not last and you didn't have the money to get more?: I choose not to answer this question Within the past 12 months, did you worry whether your food would run out before you got money to buy more?: I choose not to answer this question Do you have trouble paying for medicines?: No Do you have trouble getting transportation to medical appointments?: No Do you have trouble paying your heating and electricity bill?: Yes Do you have trouble taking care of your child, family member or friend?: No Do you have trouble with day-to-day activities such as bathing, preparing meals, shopping, managing finances, etc.?: No Are you currently unemployed and looking for a job?: No Are you interested in more education?: Yes Please select the resources that you would like help with: Food Currently or been in a relationship where the following occur: I choose not to answer THRIVE Score: 1 ALMA ROSA-7 AMB Questionnaire ALMA ROSA-7 Date ALMA ROSA - 7 assessed: 02/23/25 Feeling nervous, anxious, or on edge: 0 = Not at all Not being able to stop or control worryin = Not at all Worrying too much about different things: 0 = Not at all Trouble relaxin = Not at all Being so restless that it is hard to sit still: 0 = Not at all Becoming easily annoyed or irritable: 0 = Not at all Feeling afraid as if something awful might happen: 0 = Not at all Total ALMA ROSA-7 score (0-4 normal; 5-9 mild; 10-14 moderate; 15-21 severe): 0 Source: Developed by Drs. Eamon Godinez, Sapphire Moy, Lucian Mccloud and colleagues, with an educational john from [employer]. ALMA ROSA-7 Assessment Billing ALMA ROSA-7 Assessment Tool: ALMA ROSA-7 Assessment 83548 Physical exam (Primary Care) Vital Signs: Last Vital Signs Temp 98.1 F 02/23/25 15:35 Pulse 76 02/23/25 15:35 Resp 16 02/23/25 15:35 BP 130/98 H 02/23/25 15:35 Pulse Ox 98 02/23/25 15:35 Oxygen Delivery Method Room Air 02/23/25 15:35 BMI result Body Mass Index 24.4 Tobacco/Smoking Status: Tobacco use Status Tobacco use date assessed 02/23/25 02/23/25 15:54 Patient Tobacco Use Status Current everyday Tobacco ( 02/23/25 15:35 cigar once a month ) Tobacco use type Cigar 02/23/25 15:35 e-Cigarette/Vaping Use Never Used 02/23/25 15:35 PHQ-9: PHQ-9 Score PHQ-9: Total score 0 02/23/25 15:35 Depression Screening Interpretation: Negative Thrive Assessment: Date of Thrive Assessment Date Thrive assessed 10/13/24 02/23/25 15:35 Currently or been in a relationship where the following occur: I choose not to answer Results AMB Hemoglobin A1c AMB Hemoglobin A1c 6.1 % Last Edit by Pao Garcia MA on 02/23/25 16:00 Results Reviewed Results Reviewed: Laboratory Last Values Hgb A1c (Clinic) 6.1 % (4.0-6.0) H 02/23/25 15:36 Coding Level of Care Code Est Pt Level 3 (48430) Diagnoses Type 2 diabetes mellitus without complication, without long-term current use of insulin E11.9 Diabetes mellitus complication status: without complication Diabetes mellitus terminal operations manager insulin use: without terminal operations manager use Diabetes mellitus type: type 2 HTN (hypertension) I10 Additional Codes ALMA ROSA-7 Assessment Billing - ALMA ROSA-7 Assessment Tool: ALMA ROSA-7 Assessment 68603 ([id number]) PHQ-9 - 69698 - PHQ-9 Billing: Yes ([id number]) Assessment & Plan Assessment & Plan (1) Diabetes: Code(s): E11.9 - Type 2 diabetes mellitus without complications Category: Medical Qualifiers: Diabetes mellitus complication status: without complication Diabetes mellitus mcfp insulin use: without terminal operations manager use Diabetes mellitus type: type 2 Qualified Code(s): E11.9 - Type 2 diabetes mellitus without complications (2) HTN (hypertension): Code(s): I10 - Essential (primary) hypertension Category: Medical Plan . Orders: Orders AMB Hemoglobin A1c Today Z13.9 - Encounter for screening, unspecified Complete Blood Count Auto Diff Today E11.9 - Type 2 diabetes mellitus without complications Lipid Panel Today E11.9 - Type 2 diabetes mellitus without complications Microalbumin, Random (w Creat) Today E11.9 - Type 2 diabetes mellitus without complications Comprehensive [place]. Panel Fast Today E11.9 - Type 2 diabetes mellitus without complications TSH reflex Free T4 Today E11.9 - Type 2 diabetes mellitus without complications UA CC w/rflx Micro + Cult Today E11.9 - Type 2 diabetes mellitus without complications Medications: New losartan 25 mg PO DAILY 30 tabs 2RF 30 days Refilled sildenafil administer 30 minutes to 4 hours before activity 25 mg PO DAILY PRN 10 tabs 3RF sexual activity
--- OUTSIDE RECORDS SUMMARY | 2025-02-23 15:34 | XMS_ITS | Clinical Summary ---
Author Organization [facility] ity Address [address] [place] [address] Care Team Providers Care Subscription Agent Name Role Phone Unavailable Primary Care Provider Unavailabl e Surgical History Surgery Date Site/Laterality Comments OTHER SURGICAL HISTORY 03/03/2024 PROCEDURE: HISTORY OTHER; COMMENT: SBO, Laparoscopic adhesiolysis APPENDECTOMY PROCEDURE: MT APPENDECTOMY Social History Tobacco Use Types Packs/Day [...] Panel) 05/03/2024 Colorectal Cancer Screening: Colonoscopy 05/03/2024 Falls Risk Assessment 05/03/2024 Hepatitis C Screening 05/03/2024 Social Influencers of Health Screening 05/03/2024 Depression Screening 07/27/2024 Influenza Vaccine (#1) 2025 RSV Immunization Adult Patie nts (1 [...]
[2025-02-23 15:35] VITALS: BP 130/98; PULSE 76; RESP 16; TEMP 36.7; O2SAT 98; BMI 24.4
== END 2025-02-23 17:05 | disposition home or self-care (01) ==
LOC: HO.HMCC 15:28
PROVIDERS: PCP Nurse Practitioner Family; Visit Provider Nurse Practitioner Family
DX: E11.9 Type 2 diabetes mellitus without complications (principal); I10 Essential (primary) hypertension; Z13.9 Encounter for screening, unspecified

== ENCOUNTER → 2025-02-23 15:27 | Outpatient (BNVA) | payer OTHER, SELFPAY | PROVIDERS: PCP Nurse Practitioner Family; Visit Provider Nurse Practitioner Family | DX: E11.9 Type 2 diabetes mellitus without complications (principal); I10 Essential (primary) hypertension | CPT/HCPCS: 83036; 96127 ==

== ENCOUNTER 2025-04-05 09:36 | Outpatient (REF) | payer OTHER, SELFPAY ==
--- NOTE | ~2025-04-05 | US_ITS ---
EXAMINATION: US RETROPERITONEUM HISTORY: N41.9 - Inflammatory disease of prostate, unspecified TECHNIQUE: Real-time grayscale ultrasound imaging of the kidneys was performed and images were reviewed. COMPARISON: There are no prior studies available for comparison. FINDINGS: Right kidney: The right kidney measures 9.6 x 5.6 x 4.5 cm. Renal parenchymal echotexture and thickness are normal. There are no masses. There is no hydronephrosis or renal calculi. Left Kidney: The left kidney measures 10.4 x 6.5 x 5.0 cm. Renal parenchymal echotexture and thickness are normal. There are no masses. There is no hydronephrosis or renal calculi. The urinary bladder is unremarkable. Bilateral ureteral jets are identified. Before voiding, the urinary bladder measured 9.3 x 7.6 x 9.2 cm, for an estimated volume of 340 mL. After voiding, the urinary bladder measured 7.7 x 3.1 x 5.2 cm, for an estimated volume of 65 mL. The prostate measures 5.2 x 4.5 x 5.6 cm, for an estimated volume of 55 mL. US/US retroperitoneal comp IMPRESSION: 1. Unremarkable retroperitoneal ultrasound. 2. Post void bladder residual of 65 mL. 3. Prostate volume of 55 mL. Electronically signed by: Eamon Casarez MD 04/05/2025 10:31 AM EDT
--- OUTSIDE RECORDS SUMMARY | 2025-04-05 11:27 | XMS_ITS | Clinical Summary ---
Author Organization [facility] ity Address [address] [place] [address] Care Team Providers Care Order Selector Name Role Phone Unavailable Primary Care Provider [...] 01/09/2008 Zoster Vaccines (1 of 2) 01/09/2008 Abdominal Aortic Aneurysm (A AA) Screen 05/03/2024 Cholesterol Screening (Lipid Panel) 05/03/2024 Colorectal Cancer Screening: Colonoscopy 05/03/2024 Falls Risk Assessment 05/03/2024 Hepatitis C Screening 05/03/2024 Social Influencers of Health Screening 05/03/2024 Depression Screening 07/27/2024 COVID-19 Vaccine ( - 2023-2 5 season) 2025 Influenza Vaccine (#1) 2025 RSV Immunization Adult [...]
== END 2025-04-05 09:37 | disposition home or self-care (01) ==
LOC: HO.US 09:36
PROVIDERS: PCP Nurse Practitioner Family; Visit Provider Nurse Practitioner Family
DX: N41.9 Inflammatory disease of prostate, unspecified (principal)
CPT/HCPCS: 76770

== ENCOUNTER → 2025-04-05 09:39 | Outpatient (BNV) | payer OTHER, SELFPAY | PROVIDERS: PCP Nurse Practitioner Family; Visit Provider Radiology Diagnostic Radiology | DX: N41.9 Inflammatory disease of prostate, unspecified (principal) | CPT/HCPCS: 76770 ==

== ENCOUNTER 2025-04-24 14:03 | Outpatient (AMB) | payer OTHER, SELFPAY ==
[2025-04-24 14:17] VITALS: BP 162/82; PULSE 62; BMI 24.5
--- NOTE | 2025-04-24 14:17 | A.OFFVIS_ITS ---
Vital Signs 04/24/25 14:17 Height 5 ft 7.5 in Weight 158 lb 11.725 oz BMI 24.5 BP 162/82 H Blood Pressure Location Lt brachial Position Sitting Pulse 62 Intake Visit Reasons: colo screening Intake Note: New patient in office today for colonoscopy screening. CC: Patient states that right now he is not taking any medications. Denies having any GI symptoms or concerns. 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 male with past medical history of hypertension, elevated PSA, prostatitis is here today for pre colonoscopy screening.? Patient was sent to us by his PCP.? This is his first colonoscopy screening.? Patient denies any gastrointestinal symptoms in the past or at present.? Denies any personal or family history of gastrointestinal disease, colon polyps, or CRC.? Denies history of difficulty with sedation or anesthesia in the past.? Negative for history of sleep apnea.? Denies any history of cardiac, renal, pulmonary, or hepatic disease.?? No history of infectious? diseases like hepatitis A, B, C, HIV or tuberculosis.? Patient is not on any anticoagulation [facility] Medical History Rash and nonspecific skin eruption Surgical History (Updated 04/24/25 @ 14:26 by JERRY Carlisle) History of prostate surgery S/P appendectomy Social History Housing: House Alcohol intake: never Patient Tobacco Use Status: Current everyday Tobacco user (cigar once a month ) Tobacco use type: Cigar e-Cigarette/Vaping Use: Never Used service: No Current occupational status: employed Current occupation: [employer] Current occupational exposures/hazards: No Cognitive needs: No Hearing needs: No Vision needs: No Review of Systems Const Denies weight gain and Denies weight loss ENT Reports no additional complaints, Denies dysphagia and Denies odynophagia Card Reports no additional complaints Resp Reports no additional complaints GI Denies abdominal pain, Denies belching, Denies melena, Denies bloating, Denies change in bowel habits, Denies dysphagia, Denies excessive flatus, Denies dyspepsia, Denies heartburn, Denies diarrhea, Denies loose stools, Denies n ausea, Denies odynophagia and Denies vomiting Reports no additional complaints Musc Reports no additional complaints Neuro Reports no additional complaints Psych Reports no additional complaints Endo Reports no additional complaints Physical Exam Vital Signs: Last Vital Signs Pulse 62 04/24/25 14:17 BP 162/82 H 04/24/25 14:17 BMI result Body Mass Index 24.5 Const General: healthy appearing, no acute distress and well developed Nutritional Appearance: well nourished Orientation/consciousness: patient oriented x3 Resp Effort & Inspection: normal respiratory effort, able to speak in complete sentences, no tracheal deviation and symmetric chest movement Auscultation: clear to auscultation bilaterally Cardio Rate: regular rate GI Inspection: Yes normal to inspection and No distended Palpation (GI): Soft to palpation, not firm, nontender and No hepatosplenomegaly present Auscultation: normal bowel sounds General: Yes no CVA tenderness Back/Spine/Pelvis Back: no CVA tenderness Skin General skin exam: elasticity normal, turgor normal and dry skin Neuro General: patient oriented x3 Psych Appearance: grossly normal Mental Status: mental status grossly normal Assessment & Plan Assessment & Plan (1) Screening for colon cancer: Code(s): Z12.11 - Encounter for screening for malignant neoplasm of colon Category: Medical Plan Patient denies any GI, cardiac or respiratory symptoms.? Denies any issues with anesthesia in the past.? Denies any history of sleep apnea.? No history infectious diseases in the past or present.? Not on any anticoagulation therapy.? No family or personal history of colon cancer or polyps.? Patient denies melena, hematochezia, unintentional weight loss or ribbon like stools.? Discussed at length the pre-procedure,? prep, diet & medications as well as what to expect prior, during and after the procedure.?? Stressed the importance of good bowel prep.? Recommended the use of Vaseline or Calmoseptine OTC & baby wipes with bowel movements to promote comfort.? ?Patient verbalizes understanding and agrees to plan of care.? He was given the opportunity to ask questions and all questions answered.? We will see him after the procedure.? Orders: Referrals GI Procedure Notification Z12.11 - Encounter for screening for malignant neoplasm of colon Medications: New bisacodyl (Dulcolax (bisacodyl)) take 4 tabs at noon the day before your colonoscopy 20 mg (4 x 5 mg) PO ONCE 4 tabs 0RF constipation 1 day Z12.11 - Encounter for screening for malignant neoplasm of colon polyethylene glycol 3350 (Miralax) As directed by gastroenterology department at [facility] 238 grams PO ONCE 238 grams 0RF Z12.11 - Encounter for screening for malignant neoplasm of colon Refilled hydrocortisone 1% 1 appl topical BID PRN 28.4 grams 0RF skin irritation 14 days R21 - Rash and other nonspecific skin eruption Coding Level of Care Code New Pt Level 3 (79127) Diagnoses Screening for colon cancer Z12.11 Time Spent (min) 40 Comment 30 minutes spent with patient and additional 10 minutes spent reviewing his records
--- OUTSIDE RECORDS SUMMARY | 2025-04-24 15:52 | XMS_ITS | Clinical Summary ---
Author Organization [facility] ity Address [address] [place] [address] Care Team Providers Care Load Dropper Name Role Phone Unavailable Primary Care Provider [...]
== END 2025-04-24 14:58 | disposition home or self-care (01) ==
LOC: HO.HGI 14:03
PROVIDERS: PCP Nurse Practitioner Family; Visit Provider Nurse Practitioner Family
DX: Z01.818 Encounter for other preprocedural examination (principal); Z12.11 Encounter for screening for malignant neoplasm of colon
CPT/HCPCS: 99203